=== PATIENT | female | born 1965 | race African-American/Black ===

== ENCOUNTER 2020-11-27 14:15 | Emergency (ER) | payer BC ==
[2020-11-27 14:30] VITALS: TEMP 98.5; BMI 28.8
[2020-11-27] MEDS ORDERED: FAMOTIDINE 20 MG/50 ML IVPB 20 MG/50 ML MG IVPB ONE ×2 (15:23→15:54)
[2020-11-27] MEDS ORDERED: SODIUM CHLORIDE 1,000 ML IV STA (15:23)
[2020-11-27] MEDS ORDERED: ONDANSETRON 4 MG/2 ML VIAL IVPUSH ONE (15:23)
[2020-11-27] MEDS ORDERED: ONDANSETRON 4 MG/2 ML VIAL ONE (15:54)
[2020-11-27 16:27] LABS: BASO % 0.9 % (0-2.0); EOS % 6.4 % (0-4.5); HEMATOCRIT 38.9 % (32.4-45.2); HEMOGLOBIN 13.1 GM/dL (10.7-15.3); LYMPH % 30.6 % (8-40); MCH 29.5 pg (25.7-33.7); MCHC 33.6 g/dl (32.0-36.0); MEAN PLT VOLUME 7.6 fl (7.5-11.1); MONO % 7.5 % (3.8-10.2); NEUT % 54.6 % (42.8-82.8); PLATELET COUNT 253 K/MM3 (134-434); RBC 4.42 M/mm3 (3.60-5.2); RDW 13.3 % (11.6-15.6); WHITE BLOOD COUNT 4.1 K/mm3 (4.0-10.0)
[2020-11-27 16:35] LABS: POTASSIUM 3.5 mmol/L (3.5-5.1)
[2020-11-27 16:37] LABS: CALCIUM 9.1 mg/dL (8.5-10.1)
[2020-11-27 16:38] LABS: ALBUMIN 3.6 g/dl (3.4-5.0)
[2020-11-27 16:41] LABS: CREATININE 0.8 mg/dL (0.55-1.3)
[2020-11-27 16:42] LABS: BILIRUBIN,TOTAL 0.5 mg/dL (0.2-1); TOT PROT 7.8 g/dl (6.4-8.2)
[2020-11-27 17:36] LABS: URINE APPEARANCE CLEAR; URINE BILIRUBIN NEGATIVE (NEGATIVE); URINE COLOR YELLOW; URINE GLUCOSE (UA) NEGATIVE (NEGATIVE); URINE KETONE TRACE (NEGATIVE); URINE LEUK ESTERASE NEGATIVE (NEGATIVE); URINE NITRITE NEGATIVE (NEGATIVE); URINE PROTEIN NEGATIVE (NEGATIVE)
[2020-11-27] MEDS ORDERED: metroNIDAZOLE 500 MG TABLET PO ONE (18:32)
[2020-11-27] MEDS ORDERED: CIPROFLOXACIN 500 MG TABLET (RESTRICTED TO ID) PO ONE (18:32)
[2020-11-27 18:39] VITALS: BP 124/88; PULSE 82
[2020-11-27] MEDS ORDERED: metroNIDAZOLE 250 MG TABLET ONE (18:43)
== END 2020-11-27 19:31 | disposition home or self-care (01) ==
LOC: JER 14:15
PROC: 3E033NZ Introduction of Analgesics, Hypnotics, Sedatives into Peripheral Vein, Percutaneous Approach (ICD-10-PCS; principal; 2020-11-27)
PROC: 3E033GC Introduction of Other Therapeutic Substance into Peripheral Vein, Percutaneous Approach (ICD-10-PCS; 2020-11-27)
PROC: 3E0337Z Introduction of Electrolytic and Water Balance Substance into Peripheral Vein, Percutaneous Approach (ICD-10-PCS; 2020-11-27)
DX: K57.90 Diverticulosis of intestine, part unspecified, without perforation or abscess without bleeding (principal); N83.202 Unspecified ovarian cyst, left side
CPT/HCPCS: 36415; 74177-TC; 80053; 81003; 83605; 83690; 85025; 87086; 93005; 93010; 99285-25; Q9967

== ENCOUNTER 2021-03-17 21:03 | Emergency (ER) | payer BC, OTHER ==
[2021-03-17 21:12] VITALS: BP 131/83; PULSE 88; TEMP 98; BMI 29.3
[2021-03-17] MEDS ORDERED: LIDOCAINE 5% TOPICAL PATCH TP ONE (21:55)
[2021-03-17] MEDS ORDERED: CYCLOBENZAPRINE HCL 10 MG TABLET (FP) PO ONE (21:56)
[2021-03-17] MEDS ORDERED: LIDOCAINE 5% TOPICAL PATCH ONE (22:04)
[2021-03-17] MEDS ORDERED: CYCLOBENZAPRINE HCL 10 MG TABLET (FP) ONE (22:04)
== END 2021-03-17 22:31 | disposition home or self-care (01) ==
LOC: JERFT 21:03 → JER 21:03 → JERFT 22:31
DX: M54.5 Low back pain (principal)
CPT/HCPCS: 72100-TC-FY; 99283-25

== ENCOUNTER 2022-07-20 10:44 | Emergency (ER) | payer BC, OTHER ==
[2022-07-20 11:23] VITALS: BP 116/81; PULSE 77; RESP 18; TEMP 97.7; BMI 29.5
[2022-07-20] MEDS ORDERED: MECLIZINE HCL 25 MG TABLET (FP) PO ONE (11:57)
[2022-07-20] MEDS ORDERED: ONDANSETRON *ODT* 4 MG TABLET SL ONE (12:01)
[2022-07-20] MEDS ORDERED: MECLIZINE HCL 25 MG TABLET (FP) ONE (12:02)
[2022-07-20] MEDS ORDERED: ONDANSETRON *ODT* 4 MG TABLET ONE (12:02)
== END 2022-07-20 12:58 | disposition home or self-care (01) ==
LOC: JERFT 10:44
DX: R42 Dizziness and giddiness (principal)
CPT/HCPCS: 99283-25; Q0162

== ENCOUNTER 2023-06-08 09:06 | Emergency (ER) | payer BC ==
[2023-06-08 09:34] VITALS: BMI 30.5
[2023-06-08 10:55] LABS: BASO % 0.9 % (0-2.0); EOS % 1.7 % (0-4.5); HEMATOCRIT 39.4 % (32.4-45.2); LYMPH % 10.6 % (8-40); MCH 28.9 pg (25.7-33.7); MEAN CELL VOLUME 87.4 fl (80-96); MEAN PLT VOLUME 7.3 fl (7.5-11.1); MONO % 6.1 % (3.8-10.2); NEUT % 80.7 % (42.8-82.8); PLATELET COUNT 274 10^3/uL (134-434); RBC 4.51 M/mm3 (3.60-5.2); RDW 12.9 % (11.6-15.6); URINE APPEARANCE CLEAR; URINE BILIRUBIN NEGATIVE (NEGATIVE); URINE COLOR YELLOW; URINE GLUCOSE (UA) NEGATIVE (NEGATIVE); URINE KETONE NEGATIVE (NEGATIVE); URINE LEUK ESTERASE NEGATIVE (NEGATIVE); URINE NITRITE NEGATIVE (NEGATIVE); URINE PROTEIN NEGATIVE (NEGATIVE); URINE UROBILINOGEN 0.2 mg/dL (0.2-1.0); WHITE BLOOD COUNT 7.4 K/mm3 (4.0-10.0)
[2023-06-08 11:44] LABS: ALBUMIN 3.5 g/dl (3.4-5.0); BLOOD UREA NITROGEN 12.8 mg/dL (7-18); CALCIUM 9.1 mg/dL (8.5-10.1)
[2023-06-08 11:47] LABS: CREATININE 0.7 mg/dL (0.55-1.3)
[2023-06-08 11:48] LABS: BILIRUBIN,TOTAL 0.5 mg/dL (0.2-1); TOT PROT 7.7 g/dl (6.4-8.2)
[2023-06-08] MEDS ORDERED: AMOX TR/POT CLAV 875MG/125MG TABLETS (FP) PO ONE (14:41)
[2023-06-08] MEDS ORDERED: AMOX TR/POT CLAV 875MG/125MG TABLETS (FP) ONE (14:56)
[2023-06-08 15:14] VITALS: BP 117/67; PULSE 89; RESP 16; TEMP 99.2
== END 2023-06-08 15:15 | disposition home or self-care (01) ==
LOC: JER 09:06
DX: R10.31 Right lower quadrant pain (principal); R10.32 Left lower quadrant pain; K57.92 Diverticulitis of intestine, part unspecified, without perforation or abscess without bleeding
CPT/HCPCS: 36415; 74177-TC; 80053; 81003; 83605; 83690; 84703; 85025; 87086; 93005; 93010; 99285-25; Q9967

== ENCOUNTER 2024-03-09 08:14 | Emergency (ER) | payer BC ==
[2024-03-09 08:20] VITALS: RESP 20; BMI 29.5
[2024-03-09] MEDS ORDERED: ACETAMINOPHEN INJECTION 100 ML IVPB ONE (09:26)
[2024-03-09] MEDS: ACETAMINOPHEN 1000 MG/100 ML BAG IVPB ONE (09:45)
[2024-03-09 10:15] LABS: BASO % 0.7 % (0-2.0); EOS % 2.9 % (0-4.5); HEMATOCRIT 39.3 % (32.4-45.2); HEMOGLOBIN 12.9 GM/dL (10.7-15.3); LYMPH % 29.4 % (8-40); MCH 29.1 pg (25.7-33.7); MCHC 32.9 g/dl (32.0-36.0); MEAN CELL VOLUME 88.5 fl (80-96); MEAN PLT VOLUME 7.3 fl (7.5-11.1); MONO % 7.1 % (3.8-10.2); NEUT % 59.9 % (42.8-82.8); PLATELET COUNT 249 10^3/uL (134-434); RBC 4.44 M/mm3 (3.60-5.2); RDW 13.1 % (11.6-15.6); WHITE BLOOD COUNT 4.3 K/mm3 (4.0-10.0)
[2024-03-09 10:15] LABS: PH,URINE 6.5 (5.0-8.0); URINE APPEARANCE CLEAR; URINE BILIRUBIN NEGATIVE (NEGATIVE); URINE COLOR YELLOW; URINE GLUCOSE (UA) NEGATIVE (NEGATIVE); URINE KETONE NEGATIVE (NEGATIVE); URINE LEUK ESTERASE NEGATIVE (NEGATIVE); URINE NITRITE NEGATIVE (NEGATIVE); URINE PROTEIN NEGATIVE (NEGATIVE)
[2024-03-09 10:25] LABS: INR 1.04 (0.83-1.09); PROTHROMBIN TIME (PATIENT) 11.7 SEC (9.7-13.0)
[2024-03-09 10:27] LABS: ACTIVATED PTT 34.1 SECONDS (25.2-36.5)
[2024-03-09 10:31] LABS: POTASSIUM 4.3 mmol/L (3.5-5.1)
[2024-03-09 10:34] LABS: ALBUMIN 3.5 g/dl (3.4-5.0); BLOOD UREA NITROGEN 9.1 mg/dL (7-18)
[2024-03-09 10:37] LABS: CREATININE 0.7 mg/dL (0.55-1.3)
[2024-03-09 10:38] LABS: TOT PROT 7.8 g/dl (6.4-8.2)
[2024-03-09 10:39] LABS: BILIRUBIN,TOTAL 0.6 mg/dL (0.2-1); MAGNESIUM 2.1 mg/dL (1.8-2.4)
[2024-03-09] MEDS ORDERED: AMOX TR/POT CLAV 875MG/125MG TABLETS (FP) ONE (13:10)
[2024-03-09] MEDS: AMOX TR/POT CLAV 875MG/125MG TABLETS (FP) PO ONE (13:17)
[2024-03-09 13:23] VITALS: BP 109/76; PULSE 66; TEMP 97.3
== END 2024-03-09 13:26 | disposition home or self-care (01) ==
LOC: JER 08:14
PROC: 3E033NZ Introduction of Analgesics, Hypnotics, Sedatives into Peripheral Vein, Percutaneous Approach (ICD-10-PCS; principal; 2024-03-09)
DX: K57.32 Diverticulitis of large intestine without perforation or abscess without bleeding (principal); K57.30 Diverticulosis of large intestine without perforation or abscess without bleeding; R10.12 Left upper quadrant pain; R10.31 Right lower quadrant pain; R10.32 Left lower quadrant pain
CPT/HCPCS: 36415; 74177-TC; 80053; 81003; 83690; 83735; 85025; 85610; 85730; 86850; 86900; 86901; 87086; 99285-25; J0131; Q9967